=== PATIENT | male | born 1995 | race Caucasian/White ===

== ENCOUNTER 2024-12-02 20:56 | Observation (INO) | payer OTHER ==
[2024-12-02] MEDS ORDERED: Glucagon 1 MG/ML KIT IM PRN (21:58)
[2024-12-02] MEDS ORDERED: Dextrose 50% Abboject 50 ML SYRINGE SLOW IVP PRN (21:58)
[2024-12-02] MEDS ORDERED: Ondansetron PF 4 MG/2 ML Vial IVP PRN (21:59)
[2024-12-02] MEDS ORDERED: Acetaminophen 325 MG TAB PO PRN (21:59)
[2024-12-02 23:36] VITALS: BMI 38.7
[2024-12-03 04:05] LABS: #Basophils Less than 0.03 10x3/uL (0.0-0.2); #Eosinophils 0.11 10x3/uL (0.0-0.7); #Monocytes 0.64 10x3/uL (0.11-0.59); #Neutrophils 2.70 10x3/uL (1.40-6.50); %Basophils 0.3 % (0.0-1.0); %Eosinophils 1.6 % (0.0-10.0); %Lymphocytes 49.6 % (21.0-51.0); %Monocytes 9.3 % (0.0-10.0); %Neutrophils 39.1 % (42.0-75.0); Hematocrit 40.6 % (42.0-52.0); Hemoglobin 13.4 g/dL (14.0-18.0); Mean Corpuscular Hemoglobin 27.9 pg (27.0-31.0); Mean Corpuscular Volume 84.4 fL (78.0-98.0); Platelet Count 227 10x3/uL (130-400); Red Blood Cell (RBC) Count 4.81 mill/uL (4.70-6.10); White Blood Cell (WBC) Count 6.91 10x3/uL (4.8-10.8)
[2024-12-03 04:37] LABS: Anion Gap 9 mmol/L (10-20); BUN (Urea Nitrogen) 20 mg/dL (8.9-20.6); CK (CPK) 230 U/L (30-200); Calc. Creatinine Clearance 161 mL/min (70-130); Calcium 8.5 mg/dL (7.8-10.44); Carbon Dioxide 23 mmol/L (22-29); Chloride 112 mmol/L (98-107); Glucose 98 mg/dL (70-105); Magnesium 2.1 mg/dL (1.6-2.6); Potassium 3.4 mmol/L (3.5-5.1); Sodium 141 mmol/L (136-145)
[2024-12-03 09:14] VITALS: BP 117/79; TEMP 97.7
[2024-12-03] MEDS: Enoxaparin 40 MG (0.4 mL) SYRINGE SC SCH (09:22)
[2024-12-03] MEDS: TETANUS, DIPHTHERIA TOX,ADULT (TDVAX) 0.5 ML VIAL IM ONE (11:59)
== END 2024-12-03 13:46 | disposition home or self-care (01) ==
LOC: ERS 20:56 → 2NO 22:02
PROVIDERS: ADMIT Surgery; ATTEND Surgery
DX: T75.4XXA Electrocution, initial encounter (principal); R94.4 Abnormal results of kidney function studies; W86.8XXA Exposure to other electric current, initial encounter
CPT/HCPCS: 36415; 80048; 82550; 83735; 84100; 85025; 93005; 96372; 99284; G0378; G0390; J1650; J7030